=== PATIENT | female | born 1970 | race African-American/Black ===

== ENCOUNTER 2016-07-10 08:00 | Emergency (ER) | payer BC ==
[~2016-07-10] VITALS: Ht 160 cm; Wt 103.9 kg
--- NOTE | 2016-07-10 08:00 | NUR ---
Patient BIBA BLS, transferred to bed 6. RN evaluating patient at bedside.
[2016-07-10 08:03] VITALS: BP 164/109
--- NOTE | 2016-07-10 08:04 | NUR ---
45/F BIBA FOR EVALUATION OF LOWER ABDOMINAL PAIN SINCE THIS AM. HX HTN. DENIES N/V/D; SKIN IS PINK/WARM/DRY; AAOX4 WITH EVEN AND STEADY GAIT; LUNGS CLEAR BL; HR EVEN AND REGULAR; PT DENIES ANY FEVER, CP, SOB, OR COUGH AT THIS TIME; PATIENT STATES PAIN OF 6/10 AT THIS TIME; PATIENT POSITIONED FOR COMFORT; HOB ELEVATED; BEDRAILS UP X2; BED DOWN. ER MD MADE AWARE OF PT STATUS.
[2016-07-10] MEDS ORDERED: AMLO1CAP PO (08:09)
[2016-07-10] MEDS ORDERED: NAPR500T1 PO (08:09)
[2016-07-10 08:42] VITALS: BP 151/97
--- NOTE | 2016-07-10 08:42 | NUR ---
Patient discharged with v/s stable. Written and verbal after care instructions given and explained. Patient verbalized understanding. Ambulatory with steady gait. All questions addressed prior to discharge. Advised to follow up with PMD. Addendum: 07/10/16 at 0850 by KIERAN D/C WITH BP151/97; PT DENIES HEAD ACHE OR DIZZINESS AT THIS TIME, ER AWARE, WILL FOLLOWUP WITH PMD
== END 2016-07-10 08:42 | disposition home or self-care (01) ==
LOC: MED 08:00
DX: R10.30 Lower abdominal pain, unspecified (principal); R11.0 Nausea; R19.7 Diarrhea, unspecified; I10 Essential (primary) hypertension
CPT/HCPCS: 81002; 81025; 99283